=== PATIENT | male | born 1955 | race Caucasian/White ===

== ENCOUNTER 2017-01-05 11:48 | Emergency (ER) | payer OTHER ==
[~2017-01-05] VITALS: Ht 185.4 cm; Wt 89.0 kg
[2017-01-05 11:55] VITALS: TEMP 36.7; Ht 185.4 cm; Wt 89.0 kg
[2017-01-05] MEDS ORDERED: ATOR-22 PO (12:23)
[2017-01-05] MEDS ORDERED: SITA1TAB21 PO (12:23)
[2017-01-05] MEDS ORDERED: VALS-58 PO (12:23)
[2017-01-05] MEDS ORDERED: ASPI81TA28 PO (12:23)
--- NOTE | 2017-01-05 13:19 | DIAGNOSTIC IMAGING REPORT ---
RIGHT RIBS UNILATERAL WITH PA CHEST CLINICAL HISTORY: eval for fx Right COMPARISON STUDY: None FINDINGS: Old fractures right eighth and ninth ribs. No acute bony abnormality. Cortical margins are intact. Lungs are clear. IMPRESSION: No acute process. The above report was generated using voice recognition software. It may contain grammatical, syntax or spelling errors. Electronically signed by: Aaron Perze M.D. 01/05/2017 1:18 PM Dictated Date/Time: 01/05/2017 1:17 PM
--- NOTE | 2017-01-05 13:20 | DIAGNOSTIC IMAGING REPORT ---
RIGHT SHOULDER MIN 2 VIEWS ROUTINE CLINICAL HISTORY: eval for fx Right trauma COMPARISON: None. DISCUSSION: Moderate degenerative change acromioclavicular joint. No acute bony abnormality. Cortical margins are intact. There is no evidence for soft tissue swelling. IMPRESSION: No acute process. The above report was generated using voice recognition software. It may contain grammatical, syntax or spelling errors. Electronically signed by: Aaron Perez M.D. 01/05/2017 1:19 PM Dictated Date/Time: 01/05/2017 1:18 PM
--- NOTE | 2017-01-05 13:21 | DIAGNOSTIC IMAGING REPORT ---
LEFT ANKLE MIN 3 VIEWS ROUTINE CLINICAL HISTORY: eval for fx trauma COMPARISON: None. DISCUSSION: The bones and joint spaces appear intact. There is no evidence of fracture, dislocation or bony disease. Is no significant heel spur. IMPRESSION: Heel spur. No acute bony abnormality. The above report was generated using voice recognition software. It may contain grammatical, syntax or spelling errors. Electronically signed by: Aaron Perez M.D. 01/05/2017 1:20 PM Dictated Date/Time: 01/05/2017 1:19 PM
[2017-01-05] MEDS ORDERED: OXYC1TAB3 PO (13:42)
[2017-01-05 14:05] VITALS: BP 130/78; PULSE 80; O2SAT 97
--- NOTE | 2017-01-05 17:13 | EMERGENCY ROOM VISIT NOTE ---
History Report prepared by Alexandra: Rozina Little Under the Supervision of: Dr. Sancho Martinez M.D. First contact with patient: 12:22 Chief Complaint: RIB PAIN Stated Complaint: RIGHT RIB PAIN History of Present Illness The patient is a 61 year old male who presents to the Emergency Room with complaints of persistent right rib pain that began prior to arrival. He currently rates his discomfort as an 8/10 in severity. The patient states that he was mowing his grass today on an embankment when the tractor rolled over. He tumble on the grass and the back of the tractor caught his right ankle. He states that he yelled for help several times until someone could help him. The patient states that he has been able to walk on his right leg, but notes that it is stiffened. He states that he is most concerned about his right rib pain. The patient states that his pain is worsened with deep breathing but he is not short of breath. The patient additionally notes right shoulder pain. He denies any headache or loss of consciousness. The patient reports a history of hypertension. He states that he takes 81 mg of aspirin daily, but denies any other anti-coagulant use. The patient denies any abdominal pain. He states that his tetanus is up to date. Source of History: patient Onset: prior to arrival Position: other (rib) Symptom Intensity: 8/10 Quality: sharp Timing: other (persistent) Associated Symptoms: No LOC, No headache, No SOB, No abdominal pain Note: Associated Symptoms: right leg stiffness, right shoulder pain Review of Systems See HPI for pertinent positives & negatives. A total of 10 systems reviewed and were otherwise negative. Past Medical & Surgical Medical Problems: (1) Hypertension Family History No pertinent family history stated Social History Smoking Status: Never Smoker Marital Status: single Occupation Status: employed Current/Historical Medications Scheduled Aspirin (Aspirin Ec), 81 MG PO DAILY Atorvastatin (Lipitor), 20 MG PO DAILY Sitagliptin-Metformin Hcl (Janumet Xr), 2 TAB PO HS Valsartan (Valsartan), 160 MG PO DAILY Scheduled PRN Oxycodone Ir (Roxicodone Ir), 5 MG PO Q4H PRN for Pain Allergies Coded Allergies: Penicillins (Unverified Allergy, Unknown, ., 01/05/17) Physical Exam Vital Signs Date Time Temp Pulse Resp B/P (MAP) Pulse Ox O2 Delivery O2 Flow Rate FiO2 01/05/17 14:05 80 16 130/78 97 01/05/17 11:55 36.7 77 16 148/86 93 Room Air Physical Exam Constitutional: Vital signs reviewed. Eyes: Pupils are equal round reactive to light. Conjunctiva are noninjected. ENT: Pharynx is clear without erythema or exudate. Mucous membranes are moist. Neck supple without meningeal signs. Respiratory: Clear to auscultation bilaterally. Breath sounds are equal bilaterally. Cardiovascular: Regular rate and rhythm. No rubs or gallops. GI: Soft, nondistended and nontender. Bowel sounds are present. Musculoskeletal: Abrasion to the left side of the face without tenderness. No midline tenderness to the cervical, thoracic, or lumbosacral spine. Large abrasion to the left posterior shoulder and to the right elbow. Superior tenderness to the right shoulder without deformity. Abrasion to left lateral malleolus. Integumentary: As above. Neurological: The patient is awake and alert. No focal deficits. Psychiatric: Normal affect. Medical Decision & Procedures ER Provider Diagnostic Interpretation: Radiology results as stated below per my review and the radiologist's interpretation: RIGHT SHOULDER MIN 2 VIEWS ROUTINE CLINICAL HISTORY: eval for fx Right trauma COMPARISON: None. DISCUSSION: Moderate degenerative change acromioclavicular joint. No acute bony abnormality. Cortical margins are intact. There is no evidence for soft tissue swelling. IMPRESSION: No acute process. The above report was generated using voice recognition software. It may contain grammatical, syntax or spelling errors. Electronically signed by: Aaron Perez M.D. 01/05/2017 1:19 PM Dictated Date/Time: 01/05/2017 1:18 PM RIGHT RIBS UNILATERAL WITH PA CHEST CLINICAL HISTORY: eval for fx Right COMPARISON STUDY: None FINDINGS: Old fractures right eighth and ninth ribs. No acute bony abnormality. Cortical margins are intact. Lungs are clear. IMPRESSION: No acute process. The above report was generated using voice recognition software. It may contain grammatical, syntax or spelling errors. Electronically signed by: Aaron Perez M.D. 01/05/2017 1:18 PM Dictated Date/Time: 01/05/2017 1:17 PM LEFT ANKLE MIN 3 VIEWS ROUTINE CLINICAL HISTORY: eval for fx trauma COMPARISON: None. DISCUSSION: The bones and joint spaces appear intact. There is no evidence of fracture, dislocation or bony disease. Is no significant heel spur. IMPRESSION: Heel spur. No acute bony abnormality. The above report was generated using voice recognition software. It may contain grammatical, syntax or spelling errors. Electronically signed by: Aaron Perez M.D. 01/05/2017 1:20 PM Dictated Date/Time: 01/05/2017 1:19 PM ED Course 1225: The patient was evaluated in room A11B. A complete history and physical exam was performed. 1336: I reevaluated the patient and he is tender over his 9th and 10th ribs. He denies any previous rib fractures. I discussed all the exam findings with him and I discussed the treatment plan with him. He verbalized complete understanding and agreement. He is ready to go home. I additionally reviewed oxycodone use with him. Medical Decision This is a 61-year-old male who presents with injuries after a fall from a garden tractor. Differential diagnosis includes rib fracture, contusion, pneumothorax, ankle sprain, contusion. I did perform a limited focused review of portions of the patient's old chart on the electronic medical record. The patient has had no prior visits. Blood Pressure Screening: Patient was found to have an elevated blood pressure and was referred to their primary doctor for recheck and further treatment. Medication Reconciliation: I attest that I have personally reviewed the patient' s current medication list. I did evaluate the patient as noted above. The patient is presenting with injuries after a fall from the garden tractor. He complains of pain to the right ribs mostly but has some pain in other areas as described above. I did order and personally review the patient's x-rays as described above. He does not have any evidence of acute fracture to the extremities. He does have reportedly old fractures to the right lower ribs. He states that he has never had a refracture the past and he is tender right over the eighth and ninth rib. These are therefore likely new fractures and so the patient was given a prescription for OxyIR and given precautions regarding this medication. He was also given an incentive spirometer and advised follow with his doctor. He was given return instructions as outlined below. [place] Drug Monitoring Program Search Results: patient reviewed within database, no issues identified Impression Primary Impression: Fracture of rib of right side Additional Impressions: Right shoulder injury Right ankle injury Abrasions of multiple sites Scribe Attestation The scribe's documentation has been prepared under my direct and personally reviewed by me in its entirety. I confirm that the note above accurately reflects all work, treatment, procedures, and medical decision making performed by me. Departure Information Dispostion Home / Self-Care Prescriptions Oxycodone Ir (Roxicodone Ir) 5 Mg Tab 5 MG PO Q4H Y for Pain, #20 TAB Prov: Sancho Martinez M.D. 01/05/17 Referrals No Doctor, Assigned (PCP) Forms HOME CARE DOCUMENTATION FORM, IMPORTANT VISIT INFORMATION, WORK / SCHOOL INSTRUCTIONS Patient Instructions Fx Rib, My [facility] Additional Instructions You have been examined and treated today on an emergency basis only. This is not a substitute for, or an effort to provide, complete comprehensive medical care. It is impossible to recognize and treat all injuries or illnesses in a single emergency department visit. It is therefore important that you follow up closely with your physician. Call as soon as possible for an appointment. Return immediately for worsening symptoms or if you develop shortness of breath , abdominal pain, fever, vomiting, or any other concerning symptoms. Problem Qualifiers Primary Impression: Fracture of rib of right side Encounter type: initial encounter Rib fracture type: multiple ribs Fracture type: closed Qualified Codes: S22.41XA - Multiple fractures of ribs , right side, initial encounter for closed fracture Additional Impressions: Right shoulder injury Encounter type: initial encounter Qualified Codes: S49.91XA - Unspecified injury of right shoulder and upper arm, initial encounter Right ankle injury Encounter type: initial encounter Qualified Codes: S99.911A - Unspecified injury of right ankle, initial encounter
== END 2017-01-05 14:00 | disposition home or self-care (01) ==
LOC: C.EDB 11:50 → C.EDA 14:00
DX: S22.31XA Fracture of one rib, right side, initial encounter for closed fracture (principal); S49.91XA Unspecified injury of right shoulder and upper arm, initial encounter; S99.911A Unspecified injury of right ankle, initial encounter; T14.8 Other injury of unspecified body region; V83.5XXA Driver of special industrial vehicle injured in nontraffic accident, initial encounter; Y93.H2 Activity, gardening and landscaping; Y92.89 Other specified places as the place of occurrence of the external cause; I10 Essential (primary) hypertension; Z79.82 Long term (current) use of aspirin; Z79.899 Other long term (current) drug therapy; Z88.0 Allergy status to penicillin